=== PATIENT | female | born 1995 | race Caucasian/White ===

== ENCOUNTER → 2025-11-09 14:55 | Outpatient (BNVA) | payer BC, MEDICAID, SELFPAY | PROVIDERS: PCP Registered Nurse; Visit Provider Registered Nurse | DX: R19.7 Diarrhea, unspecified (principal); R00.2 Palpitations; Z83.49 Family history of other endocrine, nutritional and metabolic diseases | CPT/HCPCS: 80053; 82103; 84443; 85025; 86003; 86008 ==

== ENCOUNTER → 2025-11-28 10:52 | Outpatient (BNVA) | payer BC, MEDICAID, SELFPAY | PROVIDERS: PCP Registered Nurse; Visit Provider Registered Nurse | DX: R19.7 Diarrhea, unspecified (principal) | CPT/HCPCS: 87045; 87177; 87209; 87427; 87449 ==